=== PATIENT | female | born 1945 | race Caucasian/White ===

== ENCOUNTER 2023-09-24 08:39 | Emergency (ER) | payer OTHER, MEDICARE ==
[2023-09-24 08:46] VITALS: TEMP 98; BMI 23.8
[2023-09-24 10:09] LABS: BASO % 0.5 % (0-2.0); EOS % 0.6 % (0-4.5); HEMATOCRIT 40.3 % (32.4-45.2); HEMOGLOBIN 13.3 GM/dL (10.7-15.3); LYMPH % 13.1 % (8-40); MCH 30.4 pg (25.7-33.7); MCHC 32.9 g/dl (32.0-36.0); MEAN CELL VOLUME 92.6 fl (80-96); MEAN PLT VOLUME 7.4 fl (7.5-11.1); MONO % 5.9 % (3.8-10.2); NEUT % 79.9 % (42.8-82.8); PLATELET COUNT 289 10^3/uL (134-434); RBC 4.35 M/mm3 (3.60-5.2); RDW 12.8 % (11.6-15.6); WHITE BLOOD COUNT 10.2 K/mm3 (4.0-10.0)
[2023-09-24 10:28] LABS: POTASSIUM 3.9 mmol/L (3.5-5.1)
[2023-09-24 10:34] LABS: CALCIUM 9.7 mg/dL (8.5-10.1)
[2023-09-24 10:35] LABS: ALBUMIN 4.1 g/dl (3.4-5.0)
[2023-09-24 10:36] LABS: MAGNESIUM 2.4 mg/dL (1.8-2.4)
[2023-09-24 10:38] LABS: CREATININE 0.8 mg/dL (0.55-1.3)
[2023-09-24 10:40] LABS: BILIRUBIN,TOTAL 0.5 mg/dL (0.2-1); TOT PROT 7.8 g/dl (6.4-8.2)
[2023-09-24] MEDS ORDERED: DIPHTH,PERTUSS(ACELL),TET 0.5 ML DISP.SYRIN IM ONE ×2 (12:35→12:45)
[2023-09-24 13:09] VITALS: BP 126/73; PULSE 74; RESP 19
== END 2023-09-24 13:09 | disposition home or self-care (01) ==
LOC: JER 08:39
PROC: 0HQ1XZZ Repair Face Skin, External Approach (ICD-10-PCS; principal; 2023-09-24)
PROC: 3E0234Z Introduction of Serum, Toxoid and Vaccine into Muscle, Percutaneous Approach (ICD-10-PCS; 2023-09-24)
DX: S01.511A Laceration without foreign body of lip, initial encounter (principal); S01.81XA Laceration without foreign body of other part of head, initial encounter; R55 Syncope and collapse; M79.644 Pain in right finger(s); W19.XXXA Unspecified fall, initial encounter; Y93.01 Activity, walking, marching and hiking; Y92.009 Unspecified place in unspecified non-institutional (private) residence as the place of occurrence of the external cause
CPT/HCPCS: 0241U-QW; 12011-25; 36415; 70450-TC; 70486-TC; 72125-TC; 80053; 83735; 84484; 85025; 90471; 90715; 93005; 93010; 99285-25